=== PATIENT | male | born 1965 | race Caucasian/White ===

== ENCOUNTER 2017-02-21 07:33 | Outpatient (CLI) | payer MEDICAID ==
[2017-02-21 11:35] LABS: BASOPHILS # (AUTO) 0.1 10^3/uL (0.0-0.1); LYMPHOCYTES # (AUTO) 2.9 10^3/uL (1.5-3.5); MEAN PLATELET VOLUME 6.8 fL (7.4-11.4); MONOCYTES # (AUTO) 0.6 10^3/uL (0.0-1.0); NEUTROPHILS # (AUTO) 3.7 10^3/uL (1.5-6.6)
[2017-02-21 11:37] LABS: HCT - HEMATOCRIT 43.5 % (42.0-52.0); HGB - HEMOGLOBIN 14.8 g/dL (14.0-18.0); LYMPHOCYTES % (AUTO) 35.2 %; MEAN CORPUSCULAR HGB CONC 33.9 g/dL (32.0-36.0); MEAN CORPUSCULAR VOLUME 91.3 fL (80.0-94.0); MONOCYTES % (AUTO) 6.9 %; NEUTROPHILS % (AUTO) 44.9 %; NUCLEATED RED BLOOD CELLS AUTO 0.1 /100WBC; RED BLOOD COUNT 4.76 10^6/uL (4.70-6.10); UNCORRECTED WHITE BLOOD COUNT 8.3 x10^3/uL; WHITE BLOOD COUNT 8.3 x10^3/uL (4.8-10.8)
[2017-02-21 18:49] LABS: ALBUMIN/GLOBULIN RATIO 1.3 (1.0-2.2); AMYLASE 49 U/L (28-100); BILIRUBIN,TOTAL 0.8 mg/dL (0.2-1.0); BUN - BLOOD UREA NITROGEN 22 mg/dL (6-20); CALCIUM 9.1 mg/dL (8.5-10.3); CARBON DIOXIDE - CO2 30 mmol/L (21-32); CHLORIDE 101 mmol/L (101-111); CHOL/HDL RATIO 3.2 (<5.0); CHOLESTEROL 172 mg/dL; CREATININE 0.8 mg/dL (0.6-1.2); GFR - MDRD 103 (>89); GLUCOSE 84 mg/dL (70-100); HDL CHOLESTEROL 53 mg/dL; LDL/HDL RATIO 1.9 (<3.6); LIPASE 20 U/L (22-51); POTASSIUM 4.6 mmol/L (3.5-5.0); SODIUM 137 mmol/L (135-145); TOTAL PROTEIN 7.7 g/dL (6.7-8.2); TRIGLYCERIDES 84 mg/dL; VLDL CHOLESTEROL 17 mg/dL
== END 2017-02-21 07:34 | disposition home or self-care (01) ==
LOC: LAB.S 07:33
PROVIDERS: ATTEND Nurse Practitioner Family
DX: R10.9 Unspecified abdominal pain (principal); Z13.1 Encounter for screening for diabetes mellitus; Z13.220 Encounter for screening for lipoid disorders
CPT/HCPCS: 36415; 80053; 80061; 82150; 83690; 85025

== ENCOUNTER 2017-08-01 09:14 | Emergency (ER) | payer MEDICAID ==
--- NOTE | 2017-08-01 10:18 | ED Physician Documentation ---
History of Present Illness - Stated complaint Stated Complaint: LT SHOULDER PX - Chief complaint Chief Complaint: Trauma Ext - Additonal information Additional information: hx from pt slipped on ice and fell on L shoulder heard a break pain to clavicle no head or neck injury Review of Systems Musculoskeletal: reports: Joint pain. denies: Neck pain Neurologic: denies: Focal weakness, Numbness, Head injury PD PAST MEDICAL HISTORY - Past Medical History Cardiovascular: None Respiratory: None Neuro: None Endocrine/Autoimmune: None GI: None : None HEENT: None Psych: None Musculoskeletal: None Derm: None - Past Surgical History Past Surgical History: No - Present Medications Home Medications: Ambulatory Orders Medication Instructions Recorded Confirmed HYDROcod/ACETAM 5/325 [[place]by 5/325] 1 ea PO Q6H PRN #10 tablet 08/01/17 Ibuprofen [Motrin] 400 mg PO Q6H PRN #20 tablet 08/01/17 - Allergies Allergies/Adverse Reactions: Allergies Allergy/AdvReac Type Severity Reaction Status Date / Time No Known Drug Allergies Allergy Verified 08/01/17 09:25 - Social History Does the pt smoke?: Yes Smoking Status: Current every day smoker Does the pt drink ETOH?: No Does the pt have substance abuse?: No Substance Use and Type: Marijuana - Immunizations Immunizations are current?: Yes - POLST Patient has POLST: No PD ED PE NORMAL - Vitals Vital signs reviewed: Yes - HEENT HEENT: Atraumatic - Cardiac Cardiac: RRR - Respiratory Respiratory: No respiratory distress, Clear bilaterally - Extremities Extremities: Other (L shoulder - TTP and swelling to mid clavicle, hyumerus NT, deltoid sensation normal as well as all dermaotmes f hand, motor intact (heel seater wrist ext finger ABD OK and thumbs up), + radial pulse and cap refill) Results - Vitals Vitals: Vital Signs - 24 hr 08/01/17 08/01/17 08/01/17 09:22 10:27 10:46 Temperature 36.6 C Heart Rate 64 66 Respiratory 14 Rate Blood Pressure 120/64 125/74 O2 Saturation 99 Oxygen O2 Source Room air - Rads (name of study) shoulder Radiology: See rad report (displaced mid clavicular fx, per rad normal hemithorax) Departure - Departure Disposition: 01 Home, Self Care Clinical Impression: Fracture of clavicle, left, closed Qualifiers: Encounter type: initial encounter Clavicle location: shaft Fracture alignment: displaced Qualified Code(s): S42.022A - Displaced fracture of shaft of left clavicle, initial encounter for closed fracture Condition: Good Instructions: ED Fx Clavicle Follow-Up: [facility] [Provider Group] Prescriptions: HYDROcod/ACETAM 5/325 [[place]helby 5/325] 1 ea PO Q6H PRN #10 tablet PRN Reason: Severe Pain Ibuprofen [Motrin] 400 mg PO Q6H PRN #20 tablet PRN Reason: Pain Comments: Your clavicle / collar bone is broken and the pieces are significantly displaced. Please follow up with orthopedic clinic to see if surgery is needed. In the mean time wear the splint for support and comfort - but be sure to do some gentle range of motion with your shoulder every day to prevent scar tissue and a "frozen joint" Motrin tylenol and ice for mild pain Vicodin only if needed for very severe pain Forms: Activity restrictions Discharge Date/Time: 08/01/17 11:20
--- NOTE | 2017-08-01 10:19 | XRAY Report ---
EXAM: LEFT SHOULDER RADIOGRAPHY EXAM DATE: 08/01/2017 09:57 AM. CLINICAL HISTORY: Fall. Pain COMPARISON: None. TECHNIQUE: 2 views. FINDINGS: Bones: Comminuted midshaft left clavicle fracture. Joints: The glenohumeral and acromioclavicular joints are anatomically aligned. Soft tissues: The included hemithorax is unremarkable. Moderate soft tissue swelling. IMPRESSION: Comminuted left clavicle fracture. [facility] Referring Provider Line: [phone] SITE ID: [id number]
[2017-08-01 10:47] VITALS: BP 125/74
== END 2017-08-01 11:20 | disposition home or self-care (01) ==
LOC: ED 09:14
DX: S42.022A Displaced fracture of shaft of left clavicle, initial encounter for closed fracture (principal); W00.0XXA Fall on same level due to ice and snow, initial encounter; F17.200 Nicotine dependence, unspecified, uncomplicated
CPT/HCPCS: 99283

== ENCOUNTER 2020-04-02 11:14 | Emergency (ER) | payer MEDICAID ==
[2020-04-02] MEDS ORDERED: PROPOFOL 200 MG/20 ML VIAL IVP STA ×2 (11:31→12:21)
[2020-04-02] MEDS ORDERED: HYDROmorphone 2 MG/ML VIAL IVP STA (11:31)
[2020-04-02] MEDS ORDERED: CLINDAMYCIN 900 MG/50 ML 50 ML IV ONE (11:31)
--- NOTE | 2020-04-02 11:36 | ED Physician Documentation ---
PD HPI HEENT - Stated complaint Stated Complaint: FACE SWELLING - Chief complaint Chief Complaint: Heent - History obtained from History obtained from: Patient - Additional information Additional information: Little less than a week of progressive swelling inside the right nose. He has been on a variety of antibiotics including penicillin, Bactrim, and clindamycin with no relief. No fevers. Review of Systems Ten Systems: 10 systems reviewed and negative Constitutional: reports: Reviewed and negative Nose: reports: Reviewed and negative Throat: reports: Reviewed and negative Cardiac: reports: Reviewed and negative Respiratory: reports: Reviewed and negative PD PAST MEDICAL HISTORY - Past Medical History Cardiovascular: None Respiratory: None Endocrine/Autoimmune: None GI: None : None HEENT: None Psych: None Musculoskeletal: None Derm: None - Past Surgical History Past Surgical History: No - Present Medications Home Medications: Ambulatory Orders Medication Instructions Recorded Confirmed HYDROcod/ACETAM 5/325 [[place] 5/325] 1 ea PO Q6H PRN #10 tablet 08/01/17 Ibuprofen [Motrin] 400 mg PO Q6H PRN #20 tablet 08/01/17 Hydrocodone/Acetaminophen 1 - 2 tab PO Q6H PRN #10 tablet 04/02/20 [Hydrocodone-Acetamin 5-325 mg] - Allergies Allergies/Adverse Reactions: Allergies Allergy/AdvReac Type Severity Reaction Status Date / Time No Known Drug Allergies Allergy Verified 04/02/20 11:23 - Social History Does the pt smoke?: Yes Smoking Status: Current every day smoker Does the pt drink ETOH?: No Does the pt have substance abuse?: No - Immunizations Immunizations are current?: Yes - POLST Patient has POLST: No PD ED PE NORMAL - Vitals Vital signs reviewed: Yes - General General: Alert and oriented X 3, No acute distress - HEENT HEENT: PERRL, EOMI, Other (There is a large pointed abscess on the anterior surface of the internal part of the right nares that is pointing with mild surrounding facial cellulitis) - Neck Neck: Supple, no meningeal sign, No bony TTP - Neuro Neuro: Alert and oriented X 3, Normal speech Results - Vitals Vitals: Vital Signs - 24 hr 04/02/20 04/02/20 04/02/20 11:20 12:10 12:15 Temperature 36.4 C L Heart Rate 66 61 72 Respiratory 16 13 28 H Rate Blood Pressure 122/65 118/74 140/84 H O2 Saturation 100 97 94 04/02/20 04/02/20 13:21 13:34 Temperature 37.1 C 37.0 C Heart Rate 55 L 80 Respiratory 16 18 Rate Blood Pressure 119/76 119/70 O2 Saturation 97 100 Oxygen O2 Source Room air - Labs Labs: Microbiology 04/02/20 12:20 Wound Culture - Preliminary Abscess Laboratory Tests 04/02/20 04/02/20 11:30 11:39 WBC 13.2 H RBC 5.12 Hgb 16.1 Hct 47.1 MCV 92.0 MCH 31.4 H MCHC 34.2 RDW 12.6 Plt Count 269 MPV 8.6 Neut # (Auto) 10.4 H Lymph # (Auto) 1.9 [place] # (Auto) 0.7 Eos # (Auto) 0.1 Baso # (Auto) 0.1 Absolute Nucleated RBC 0.00 Nucleated RBC % 0.0 Sodium 136 Potassium 4.1 Chloride 99 L Carbon Dioxide 24 Anion Gap 13.0 BUN 19 Creatinine 0.9 Estimated GFR (MDRD) 89 Glucose 118 H Calcium 9.4 Procedures - Abscess I&D (location) R nares Preparation: Conscious sedation Incision: Incised with scalpel, Purulent drainage, Loculations broken, Culture obtained Other: Pt tolerated well, Dressing applied - Procedural sedation Sedation prep: Informed consent, Time out completed, Last meal (9am), PE performed, ASA 2 - mild disease (smoker) Sedation medications: propofol (80 then 60mg IVP) Patient status during sedation: Responds to tactile, Maintained airway, Recovered uneventfully Sedation recovery: Recovered uneventfully Time in sedation (Minutes): 12 PD MEDICAL DECISION MAKING - ED course ED course: 54-year-old gentleman presents with an intranasal abscess with reactive facial cellulitis. Given IV clindamycin here. The chance that this is MRSA is very high. He was sedated and it was incised and drained with excellent resolution of the local swelling. Advised to continue the clindamycin he is on pending culture results. Departure - Departure Disposition: 01 Home, Self Care Clinical Impression: Nasal abscess Condition: Good Record reviewed to determine appropriate education?: Yes Instructions: ED Abscess IandD Prescriptions: Hydrocodone/Acetaminophen [Hydrocodone-Acetamin 5-325 mg] 1 - 2 tab PO Q6H PRN #10 tablet PRN Reason: Pain Comments: Return or see your doctor on Tuesday for wound check. Sooner if worse. Continue clindamycin antibiotic already prescribed for now pending culture results. We are performing a wound culture, the results should be done in 48-72 hours. If antibiotic change is necessary we will call you. Return if worse in the meantime, especially if you develop increased pain, fevers, cannot keep down the medication. Discharge Date/Time: 04/02/20 13:37
[2020-04-02 11:53] LABS: BASOPHILS # (AUTO) 0.1 10^3/uL (0.0-0.1); BASOPHILS % (AUTO) 0.5 %; EOSINOPHILS # (AUTO) 0.1 10^3/uL (0.0-0.7); EOSINOPHILS % (AUTO) 0.4 %; HGB - HEMOGLOBIN 16.1 g/dL (14.0-18.0); LYMPHOCYTES # (AUTO) 1.9 10^3/uL (1.5-3.5); LYMPHOCYTES % (AUTO) 14.3 %; MEAN CORPUSCULAR HEMOGLOBIN 31.4 pg (27.0-31.0); MEAN CORPUSCULAR HGB CONC 34.2 g/dL (32.0-36.0); MEAN PLATELET VOLUME 8.6 fL (7.4-11.4); MONOCYTES # (AUTO) 0.7 10^3/uL (0.0-1.0); MONOCYTES % (AUTO) 5.2 %; NEUTROPHILS # (AUTO) 10.4 10^3/uL (1.5-6.6); NEUTROPHILS % (AUTO) 79.1 %; PLT - PLATELET COUNT 269 10^3/uL (130-450); RED BLOOD COUNT 5.12 10^6/uL (4.70-6.10); RED CELL DISTRIBUTION WIDTH 12.6 % (12.0-15.0); WHITE BLOOD COUNT 13.2 x10^3/uL (4.8-10.8)
[2020-04-02 12:02] LABS: CALCIUM 9.4 mg/dL (8.5-10.3); CREATININE 0.9 mg/dL (0.6-1.2)
[2020-04-02] MEDS ORDERED: KETOROLAC 30 MG/ML VIAL IVP STA (12:51)
[2020-04-02 13:36] VITALS: BP 119/70
== END 2020-04-02 13:37 | disposition home or self-care (01) ==
LOC: ED 11:14
DX: J34.0 Abscess, furuncle and carbuncle of nose (principal); L03.211 Cellulitis of face; F17.200 Nicotine dependence, unspecified, uncomplicated
CPT/HCPCS: 30000; 36415; 80048; 85025; 87070; 87181; 87205; 96365; 96375; 99152; 99284; 99285; J1170; 94770